=== PATIENT | female | born 1940 | race Caucasian/White ===

== ENCOUNTER → 2020-12-18 | Outpatient (CLI) | payer OTHER, MEDICARE ==
[~2020-12-18] VITALS: Ht 157.5 cm; Wt 61.2 kg
[~2020-12-18] MED LIST: ACTONEL 35 MG35 M1 PO; ASA81BEC PO; ASPIRIN81 M2 PO; CALCIUM 600 +1 EAC1 PO; CALCIUM 600 +1 EAC5 PO; CITRACAL SOFT1 EACH PO; FISH OIL 1,0001 EAC5 PO; GLUCOPHAGE500 MG PO; GLUCOTROL XL10 MG PO; LIPITOR 20 MG T20 M1 PO; LISINOPRIL-HCT1 EAC1 PO; LISINOPRIL5 MG PO; MULTIVITAMINS PO; PLAQUENIL200 MG PO; ROXIFOL-D TA500 UNIT PO; TRIAMCINOLONE A80 G2 TOP; ZOCOR40 MG PO
[2020-12-18 10:34] VITALS: BP 138/75
--- NOTE | 2020-12-18 10:47 | NUR ---
Pain Clinic Assessment: 1. History of Osteoarthritis: BACK KNEES HANDS History of Rheumatoid Arthritis: Not Applicable 2. Height: 5 ft. 2 in. 157.5 cm. Weight: 135.0 lb. oz. 61.236 kg. Patient's BMI: 24.7 3. Vital Signs: BP: 138/75 Pulse: 83 Resp: 16 Temp: 02 Sat: 96 ECG Mon: 4. Pain Intensity: 7-8 5. Fall Risk: Dizziness: N Needs help standing or walking: N Fallen in the last 3 months: N Fall risk comments: 6. Patient on Blood Thinner: None 7. History of Hypertension: Y 8. Opioid Therapy greater than 6 weeks: N Opiate Contract Signed: 9. Risk Assessment Tool Provided: 0-LOW RISK 10. Functional Assessment Tool: 54/70 11. Recreational Drug Use: Never Drug Type: Tobacco Use: Never Smoker Tobacco Type: Amount or Packs/day: How Many Years: Alcohol Use: No Frequency: Quant:
== END ==
LOC: PAIN 06:50
PROVIDERS: ATTEND Anesthesiology Pain Medicine
DX: M54.16 Radiculopathy, lumbar region (principal); M48.061 Spinal stenosis, lumbar region without neurogenic claudication; M79.604 Pain in right leg; M54.31 Sciatica, right side; Z88.8 Allergy status to other drugs, medicaments and biological substances; Z79.899 Other long term (current) drug therapy

== ENCOUNTER → 2021-01-18 | Outpatient (CLI) | payer OTHER, MEDICARE ==
[~2021-01-18] VITALS: Ht 157.5 cm; Wt 60.1 kg
[2021-01-18 09:36] VITALS: BP 148/72
--- NOTE | 2021-01-18 09:43 | NUR ---
Pain Clinic Assessment: 1. History of Osteoarthritis: BACK KNEES HANDS History of Rheumatoid Arthritis: Not Applicable 2. Height: 5 ft. 2 in. 157.5 cm. Weight: 132.6 lb. oz. 60.147 kg. Patient's BMI: 24.2 3. Vital Signs: BP: 148/72 Pulse: 108 Resp: 16 Temp: 02 Sat: 97 ECG Mon: 4. Pain Intensity: 8-9 5. Fall Risk: Dizziness: N Needs help standing or walking: N Fallen in the last 3 months: N Fall risk comments: 6. Patient on Blood Thinner: None 7. History of Hypertension: Y 8. Opioid Therapy greater than 6 weeks: N Opiate Contract Signed: 9. Risk Assessment Tool Provided: 0-LOW RISK 10. Functional Assessment Tool: 54/70 11. Recreational Drug Use: Never Drug Type: Tobacco Use: Never Smoker Tobacco Type: Amount or Packs/day: How Many Years: Alcohol Use: No Frequency: Quant:
== END | disposition home or self-care (01) ==
LOC: PAIN 09:09
PROVIDERS: ATTEND Anesthesiology Pain Medicine
DX: M54.16 Radiculopathy, lumbar region (principal); G89.29 Other chronic pain; Z98.890 Other specified postprocedural states; Z79.899 Other long term (current) drug therapy

== ENCOUNTER → 2021-02-19 | Outpatient (CLI) | payer OTHER, MEDICARE ==
[~2021-02-19] VITALS: Ht 157.5 cm; Wt 58.2 kg
[2021-02-19 10:13] VITALS: BP 134/67
--- NOTE | 2021-02-19 10:29 | NUR ---
Pain Clinic Assessment: 1. History of Osteoarthritis: BACK KNEES HANDS History of Rheumatoid Arthritis: Not Applicable 2. Height: 5 ft. 2 in. 157.5 cm. Weight: 128.4 lb. oz. 58.242 kg. Patient's BMI: 23.5 3. Vital Signs: BP: 134/67 Pulse: 96 Resp: 14 Temp: 02 Sat: 97 ECG Mon: 4. Pain Intensity: 3 W/MEDS 8 W/O 5. Fall Risk: Dizziness: N Needs help standing or walking: N Fallen in the last 3 months: N Fall risk comments: 6. Patient on Blood Thinner: None 7. History of Hypertension: Y 8. Opioid Therapy greater than 6 weeks: N Opiate Contract Signed: 9. Risk Assessment Tool Provided: 0-LOW RISK 10. Functional Assessment Tool: / 11. Recreational Drug Use: Never Drug Type: Tobacco Use: Never Smoker Tobacco Type: Amount or Packs/day: How Many Years: Alcohol Use: No Frequency: Quant:
== END | disposition home or self-care (01) ==
LOC: PAIN 07:16
PROVIDERS: ATTEND Anesthesiology Pain Medicine
DX: M54.16 Radiculopathy, lumbar region (principal); G89.29 Other chronic pain; M19.90 Unspecified osteoarthritis, unspecified site; Z98.890 Other specified postprocedural states; Z79.899 Other long term (current) drug therapy; Z79.82 Long term (current) use of aspirin; Z88.8 Allergy status to other drugs, medicaments and biological substances; Z88.2 Allergy status to sulfonamides